=== PATIENT | female | born 1980 | race Caucasian/White ===

== ENCOUNTER → 2017-10-10 | Outpatient (CLI) | payer OTHER ==
--- NOTE | 2017-10-10 15:44 | EXE ---
[place] [address] STRESS ECHOCARDIOGRAM Name: CRISTHIAN FLETCHER Room: [facility]#: [id number] Admission: 10/10/17 Attend Phys: Erich Christiansen Discharge: Date of : 84 Date of Service: 10/10/17 1544 Report #: [id number] THIS REPORT FOR: //name// APPROVED REPORT Exam: Stress Echocardiogram Indication: Chest pain Patient Location: Out-Patient Stress Nurse: Courtney Mora RN Supervising Physician: Erich Dorado MD Status: routine Ht: 5 ft 6 in HR: 81 bpm BP: 123/77 mmHg Medical History Cardiac Risk Factors: FHX of CAD Procedure The patient underwent an Exercise Stress Test using the Stiven Protocol. Blood pressure, heart rate, and EKG were monitored. An Echocardiogram was performed by biomedical technician in four stages in quad fashion. At peak stress, four selected images were obtained and placed side by side with resting images for comparison. Stress Test Details Stress Test: Exercise stress testing was performed using a Stiven protocol. HR Resting HR: 81 bpm Max Heart Rate (APMHR): 186 bpm Max HR Achieved: 188 bpm Target HR (85% APMHR): 158 bpm % of APMHR: 101 Recovery HR: 95 bpm HR response to stress: Normal HR response to stress BP Resting BP: 123/77 mmHg Max BP: 162/86 mmHg Recovery BP: 102/74 mmHg ECG Resting ECG: Sinus Rhythm, normal EKG Stress ECG: Sinus Tachycardia ST Change: None Arrhythmia: [place] [address] STRESS ECHOCARDIOGRAM Name: CRISTHIAN FLETCHER Room: [facility]#: [id number] Admission: 10/10/17 Attend Phys: Erich Christiansen Discharge: Date of : 84 Date of Service: 10/10/17 1544 Report #: [id number] Recovery ECG: Sinus Rhythm, normal EKG Recovery ST Change: None Recovery Arrhythmia: None Clinical Reason for Termination: Dyspnea Exercise duration: 8 min 41 sec Highest Stage Achieved: Stage 2: 2.5 mph at 12% grade. Exercise capacity: 10.16 METs The patient exhibited good exercise tolerance. She had no chest pain with standard Stiven protocol exercise. Exercise was stopped due to dyspnea. Stress ECG Conclusion The baseline 12 elect cardiac gram showed sinus rhythm without significant ST or T wave abnormality. EKGs obtained during and post exercise showed sinus rhythm and sinus tachycardia with no significant ST or T wave changes when compared to baseline. There were no stress-induced arrhythmias. Pre-Stress Echo The resting Echocardiogram showed normal left ventricular contractility with an estimated Ejection Fraction of about 55-60%. Post-Stress Echo The stress Echocardiogram showed normal left ventricular contractility with an estimated Ejection Fraction of about >70%. Clinical No clinical or ECG evidence for ischemia. Conclusion Clinical Response: Non-ischemic Exercise Capacity: Average Stress ECG Response: Non-ischemic Stress Echo Images: Non-ischemic There was no clinical, EKG or echo evidence to suggest stress-induced ischemia. This is a low risk study. Other Information Study Quality: Good <Conclusion> [place] [address] STRESS ECHOCARDIOGRAM Name: CRISTHIAN FLETCHER Room: [facility]#: [id number] Admission: 10/10/17 Attend Phys: Erich Christiansen Discharge: Date of : 84 Date of Service: 10/10/171543 Report #: [id number] There was no clinical, EKG or echo evidence to suggest stress-induced ischemia. This is a low risk study. <ELECTRONICALLY SIGNED> By: Erich Dorado MD, FACC 10/10/17 1544 [id number] Erich Dorado MD, FACC /INF
== END ==
LOC: M.CRD 13:00
DX: I10 Essential (primary) hypertension (principal); R00.8 Other abnormalities of heart beat